=== PATIENT | male | born 1995 | race Hispanic/Latino ===

== ENCOUNTER 2016-03-14 14:22 | Inpatient (IN) | payer OTHER ==
[~2016-03-14] VITALS: Ht 165.1 cm; Wt 60.0 kg
[2016-03-14 14:55] LABS: MEAN CORPUSCULAR HEMOGLOBIN 32.1 pg (27.0-33.0); MEAN CORPUSCULAR HGB CONC 35.1 g/dl (32.0-36.5); MEAN CORPUSCULAR VOLUME 91.5 fl (80.0-96.0); RED CELL DISTRIBUTION WIDTH 11.3 % (11.5-14.5)
[2016-03-14 15:46] LABS: ALBUMIN 4.4 GM/DL (3.2-5.2); ALBUMIN/GLOBULIN RATIO 1.26 (1.00-1.93); ALKALINE PHOSPHATASE 58 U/L (45-117); ALT/SGPT 26 U/L (12-78); ANION GAP 7 MEQ/L (8-16); AST/SGOT 32 U/L (15-37); BILIRUBIN,DIRECT 0.2 MG/DL (0.0-0.2); BILIRUBIN,TOTAL 0.7 MG/DL (0.2-1.0); BLOOD UREA NITROGEN 10 MG/DL (7-18); CALCIUM LEVEL 8.6 MG/DL (8.5-10.1); CARBON DIOXIDE LEVEL 32 MEQ/L (21-32); CHLORIDE LEVEL 102 MEQ/L (98-107); CREATININE FOR GFR 1.46 MG/DL (0.70-1.30); GLOMERULAR FILTRATION RATE > 60.0 (>60); GLUCOSE, FASTING 79 MG/DL (70-105); POTASSIUM SERUM 3.3 MEQ/L (3.5-5.1); SODIUM LEVEL 141 MEQ/L (136-145); TOTAL PROTEIN 7.9 GM/DL (6.4-8.2)
[2016-03-14 17:12] LABS: AMPHETAMINES LEVEL URINE NEGATIVE (NEGATIVE)
[2016-03-14 17:13] LABS: BENZODIAZEPINES URINE NEGATIVE (NEGATIVE); COCAINE METABOLITE URINE NEGATIVE (NEGATIVE); CONTROL LINE INT CTR LINE PRESENT; METHADONE URINE NEGATIVE (NEGATIVE); OPIATES URINE NEGATIVE (NEGATIVE); TRICYCLIC ANTIDEPRESS URINE NEGATIVE (NEGATIVE)
--- NOTE | 2016-03-15 17:06 | EDDOCDS ---
Nurse's Notes [facility] Name: Monty Cardenas Age: 20 yrs Sex: Male : 1995 Arrival Date: 03/14/2016 Time: 14:22 Bed OBSERVATION Private MD: [facility] Diagnosis: Major depressive disorder, recurrent Presentation: 03/14 14:28 Presenting complaint: Patient states: Seen on [place] today concerned about alcohol mlb1 abuse sent here for eval denies SI/HI reports last drank on Saturday. Mental Health Triage Level: Level 2: The patient displays active suicidal ideations. substance abuse, SI per behavioral health clinic [place]. Adult Sepsis Screening: The patient does not have new or worsening altered mentation. Patient's respiratory rate is less than 22. Systolic blood pressure is greater than 100. Patient has a qSOFA score of 0- Negative Sepsis Screen. Mental Health Triage Level: Level 2:. Suicide/Homicide risk assessment- The patient reports that he/she has not been admitted to an inpatient mental health facility in the last 30 days. The patient reports that he/she has a recent or current history of substance abuse. The patient reports that he/she has no prior history of suicide attempt and/or organized plan. The patient reports that he/she has not experienced a significant life altering event in the last 30 days. 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 Transition of care: patient was not received from another setting of care. 14:28 Acuity: SANCHEZ Level 3 mlb1 14:28 Method Of Arrival: Walkin/Carried/Asstd mlb1 14:32 Red Flag criteria, patient assessed and is suitable to finish the RCE Process. mlb1 Triage Assessment: 14:31 General: Appears in no apparent distress, Behavior is appropriate for age, cooperative. mlb1 Pain: Denies pain. Pt Declines HIV testing. Historical: - Allergies: no known allergies; - Home Meds: 1. none - PMHx: none; - PSHx: none; - Social history: Smoking status: Patient uses tobacco products, light tobacco smoker. Patient uses alcohol on a daily basis. No barriers to communication noted, The patient speaks fluent Jordanian, Speaks appropriately for age. - Family history: Not pertinent. - : The pt / caregiver states he / she is not on anticoagulants. Home medication list is obtained from the patient. - Exposure Risk Screening:: None identified. Screenin:55 Screening information is obtained from the patient. Fall risk: No risks identified. mk4 Assistance ADL's: Requires assistance with. Abuse/DV Screen: The patient / caregiver reports he/she is: not in a situation that causes fear, pain or injury. Nutritional screening: No deficits noted. Advance Directives: Currently, there is no health care proxy. There is no active DNR order. There is no living will. There is no Power of Residential Appliance Repair Technician. Advance directive information has not previously been placed in an [facility] medical record. Further advance directive information is declined. home support is adequate. Assessment: 14:55 General: Appears in no apparent distress, comfortable, Behavior is cooperative, mk4 pleasant. Neurological: Level of Consciousness is awake, alert, Oriented to person, place, time. Respiratory: Airway is patent Respiratory effort is even, unlabored, Respiratory pattern is regular. Derm: Skin is intact, is healthy with good turgor, Skin is pink, warm & dry. 16:00 General: Appears in no apparent distress, to be sleeping. Behavior is cooperative, mk4 pleasant, quiet, in full view of security. 17:15 General: Appears in no apparent distress, dinner tray provided denies needs. mk4 18:20 General: Appears in no apparent distress, comfortable, Behavior is cooperative, quiet. mk4 Neurological: Level of Consciousness is awake, alert, Oriented to person, place, time. Respiratory: Airway is patent Respiratory effort is even, unlabored, Respiratory pattern is regular. 19:17 General: Appears in no apparent distress, comfortable, to be sleeping. General: pt slm resting on stretcher security observing . Respiratory: Airway is patent Respiratory effort is even, unlabored. 20:23 General: Appears in no apparent distress, comfortable, to be sleeping. Behavior is slm quiet. General: security observing . Respiratory: Airway is patent Respiratory effort is even, unlabored. 21:15 General: Appears in no apparent distress, comfortable, to be sleeping. Behavior is slm cooperative, quiet. General: security observing . Respiratory: Airway is patent Respiratory effort is even, unlabored. Derm: Skin is pink, warm & dry. 22:15 General: Appears in no apparent distress, comfortable, to be sleeping. Behavior is slm cooperative, quiet. General: security observing . Respiratory: Airway is patent Respiratory effort is even, unlabored. 23:03 General: Appears in no apparent distress, comfortable, to be sleeping. Behavior is slm quiet. General: pt asleep security observing safety maintained . Respiratory: Airway is patent Respiratory effort is even, unlabored. 03/15 00:27 General: Appears in no apparent distress, comfortable, to be sleeping. Behavior is slm quiet. General: security observing . Respiratory: Airway is patent Respiratory effort is even, unlabored. 01:41 General: Appears in no apparent distress, comfortable, to be sleeping. Behavior is slm quiet. General: security observing . Respiratory: Airway is patent Respiratory effort is even, unlabored. 02:18 General: Appears in no apparent distress, comfortable, to be sleeping. Behavior is slm quiet. General: security observing . Respiratory: Airway is patent Respiratory effort is even, unlabored. 02:55 General: Appears in no apparent distress, Pt asleep at rounds, no apparent distress, sls1 respirations easy, security observing will continue to assess.. Respiratory: Airway is patent Respiratory effort is even, unlabored, Respiratory pattern is regular, symmetrical. 03:48 General: Appears in no apparent distress, comfortable, to be sleeping. Behavior is slm quiet. General: security observing . Respiratory: Airway is patent Respiratory effort is even, unlabored. Derm: Skin is pink, warm & dry. 03:54 General: Appears comfortable. General: pt up to use bathroom back to room denies room slm safety maintained . Pain: Denies pain. Neurological: Level of Consciousness is awake, alert, obeys commands, Oriented to person, place, time. 05:05 General: Appears in no apparent distress, comfortable, Behavior is cooperative. slm General: pt resting on stretcher security observing . Respiratory: Airway is patent Respiratory pattern is regular. 06:17 General: Appears in no apparent distress, comfortable. General: pt resting on stretcher slm denies needs security observing . Pain: Denies pain. Respiratory: Airway is patent Respiratory effort is even, unlabored. Derm: Skin is pink, warm & dry. 07:11 General: Appears in no apparent distress, comfortable, Behavior is appropriate for age, slm cooperative, quiet. General: pt sitting on side of stretcher eating breakfast provided security observing . Respiratory: Airway is patent Respiratory effort is even, unlabored. 08:44 General: Appears in no apparent distress, comfortable, Behavior is cooperative. mk4 Neurological: Level of Consciousness is awake, alert. 10:19 General: Appears in no apparent distress, comfortable, Behavior is appropriate for age, mk4 cooperative. Neurological: Level of Consciousness is awake, alert, Oriented to person, place, time. 11:25 General: Appears in no apparent distress, Behavior is cooperative. mk4 15:19 General: Appears in no apparent distress, comfortable, Behavior is cooperative. mk4 Neurological: Level of Consciousness is awake, alert, Oriented to person, place, time. Respiratory: Airway is patent Respiratory effort is even, unlabored, Respiratory pattern is regular. 15:59 General: Appears in no apparent distress, comfortable, Behavior is cooperative. mk4 16:29 General: Appears in no apparent distress, comfortable. mk4 16:39 General: Appears in no apparent distress, transferred to [facility] without incident. mk4 Mental Health Eval: 03/14 15:44 Mental health consult is initiated at 15:44. 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 Referral Information: Evaluation referral is generated by the patient's therapist [facility], Pamela Wilson . The patient was referred for evaluation because Reportedly suicidal with no plan, hx of ETOH abuse. 16:52 Subjective: The patients chief complaint is Pt seen at [facility] today due to ca increased depression and suicidal thoughts. Pt feels he would be at risk if discharged today although he has no specific plan at this time. Pt states he is upset because his left him on [place] and went back to [place]. He says she has been unfaithful to him and later texted him a picture of a positive test. . Delusions are denied. Patient's mood is depressed, hopeless. 17:34 Subjective: Hallucinations are denied. 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 He and his have been having marital problems and she left him on [place] [address] then texted him she is . Pt became upset because his had been unfaithful to him. Pt says he started drinking alcohol daily for 2 weeks then stopped abruptly. He is not a regular consumer of alcohol. Pt began having suicidal thoughts shortly thereafter. He reports feeling increasingly depressed, unable to sleep or eat properly, frequent bouts of crying and says he still loves his and wants things to work out. Mental Health history: no relevant mental health problems or treatments. Mental Health Admissions: None. Current Outpatient Mental Health Services: Therapist / Agency: Pt was seen by Pamela Wilson at [facility] as an emergent evaluation today after pt was sent there following an appearance at the [facility] program where he was requesting tx for alcohol abuse.. Current living environment is Family / Home Support: Pt currently living alone, off the post. He has no local family supports. His is in [place] where they are from and they have . recently revealed she is . Pt is unsure if the child is his. Patient presents to Emergency Department with the following symptoms within the past 2 weeks: agitation, alcohol abuse, anxiety, depressed mood, feelings of helplessness/hopelessness, marital problem, sleep disturbance - erratic suicidal ideation with no plan. Substance abuse: Patient uses of liquor. Mental status exam: Patients appearance is appropriate, Patient's behavior is cooperative, Speech is normal. Affect is appropriate. Mood is depressed. Hallucinations are denied. Appetite is erratic Memory is good. Energy level is normal. Content of thought is Depressive Thought process is intact. Cognitive level is oriented to person, place, time and situation Patient's insight is fair. Judgement is fair. Rapport with interviewer is good. Suicidal Ideation is present with no specific plan. Homicidal ideation is denied. Disposition: Medically cleared for disposition by Binta Srinivasan MD Psychiatric Consult is performed by phone with Dr Marc Stokes The patient is to be transferred to [facility] at this time. [facility] Admission Criteria: The patient is experiencing suicidal ideation. The patient displays symptoms of severe psychiatric disorder resulting in disordered behavior and significant interference with his / her ability to maintain self care. Severe Anxiety. The patient requires continuous observation and/or control to protect self, others or property. The patient's care requires a multi-modal treatment plan under close supervision and coordination due to the complexity and severity of the patient's symptoms. Legal Status: Patient's legal status will be [facility] admission: . [place] Safe [place] Safe [place] is applicable to this patient. The patient poses a risk to self or other and the Nursing Hydroelectric Production Manager has been notified. He/She will enter the patient's data. DSM-V Differential Diagnosis: Unspecified Depressive Disorder (F32.9). Insurance Pre-Certification: Not Required, Pt has . Awaiting: referral hospital acceptance. 03/15 14:24 Legal Status: Patient's legal status will be Emergency admission: 9.39. Narrative: ca Escort: Kvng Davis [phone]. Awaiting: transfer to [facility]. Vital Signs: 03/14 14:23 BP 117 / 73; Pulse 81; Resp 18 S; Temp 97.3(O); Pulse Ox 98% on R/A; Weight 63.5 kg dd6 (R); Height 5 ft. 5 in. (165.10 cm) (R); 19:30 BP 110 / 62; Pulse 97; Resp 18; Temp 99.1(TE); Pulse Ox 97% ; Pain 0/10; mas 03/15 05:02 BP 121 / 72; Pulse 79; Resp 16; Temp 98.1(TE); Pulse Ox 98% on R/A; Pain 0/10; slm 15:19 BP 113 / 63; Pulse 87; Resp 18; Temp 98.7; Pulse Ox 99% on R/A; mk4 03/14 14:23 Body Mass Index 23.30 (63.50 kg, 165.10 cm) dd6 Vitals: 03/14 14:23 Log In Time: March 14, 2016 at 14:21. RN notified that patient meets Red Flag dd6 criteria. ED Course: 14:23 Patient visited by Rishi Rousseau PCA. dd6 14:23 [facility] is Private Physician. dd6 14:23 Patient moved to Waiting dd6 14:28 Patient visited by Shahram Segura, RN. mlb1 14:31 Triage Initiated mlb1 14:32 Patient visited by Shahram Segura, KAYLEY. mlb1 14:32 Binta Srinivasan MD is Attending Physician. sd1 14:32 Patient visited by Binta Srinivasan MD. sd1 14:32 Patient moved to [facility] mlb1 14:36 Patient visited by Davonte Oquendo. gr2 14:55 The patient / caregiver is instructed regarding the plan of care and ED course. mk4 14:55 No IV's were initiated during this patient's visit. No procedures done that require mk4 assistance. 14:57 Patient visited by Davonte Oquendo. gr2 15:14 Patient visited by Davonte Oquendo. gr2 15:30 Patient visited by Davonte Oquendo. gr2 15:45 Patient visited by Davonte Oquendo. gr2 16:08 Patient visited by Tera Narayan PCA. jrd 16:20 Patient visited by Tera Narayan PCA. jrd 16:31 Patient visited by Tera Narayan PCA. jrd 16:43 [facility] Payment Agreement was scanned into studdex and attached to record. dm19 16:44 Patient visited by Davonte Oquendo. gr2 17:09 Patient visited by Davonte Oquendo. gr2 17:26 Patient visited by Davonte Oquendo. gr2 17:52 Patient visited by Tera Narayan PCA. jrd 18:03 Patient visited by Tera Narayan PCA. jrd 18:17 Patient visited by Davonte Ouqendo. gr2 18:31 Patient visited by Davonte Oquendo. gr2 18:45 Patient visited by Jayden Carter. mas 19:00 Patient visited by Jayden Carter. mas 19:15 Patient visited by Jayden Carter. mas 19:17 Rachel Gilbert LPN is Primary Nurse. slm 19:18 Patient visited by Rachel Gilbert LPN. slm 19:26 Attending Physician role handed off by Binta Srinivasan MD cs11 19:26 Magdi Mckeon DO is Attending Physician. cs11 19:31 Patient visited by Jayden Carter. mas 19:45 Patient visited by Jayden Carter. mas 20:00 Patient visited by Jayden Carter. mas 20:15 Patient visited by Jayden Carter. mas 20:23 Patient visited by Rachel Gilbert LPN. slm 20:30 Patient visited by Jayden Carter. mas 20:45 Patient visited by Jayden Carter. mas 21:00 Patient visited by Jayden Carter. mas 21:15 Patient visited by Jayden Carter. mas 21:15 Patient visited by Rachel Gilbert LPN. slm 21:31 Patient visited by Jayden Carter. mas 21:49 Patient visited by Jayden Carter. mas 21:52 Patient moved to OBSERVATION cs11 22:00 Patient visited by Jayden Carter. mas 22:15 Patient visited by Jayden Carter. mas 22:30 Patient visited by Jayden Carter. mas 22:44 Patient visited by Rachel Gilbert LPN. slm 22:45 Patient visited by Jayden Carter. mas 23:01 Patient visited by Jayden Carter. mas 23:15 Patient visited by Jayden Carter. mas 23:30 Patient visited by Jayden Carter. mas 01 00:05 Patient visited by Jayden Carter. mas 00:26 Patient visited by Jayden Carter. mas 00:28 Patient visited by Rachel Gilbert LPN. slm 00:31 Patient visited by Jayden Carter. mas 00:45 Patient visited by Jayden Carter. mas 01:01 Patient visited by Jayden Carter. mas 01:16 Patient visited by Jayden Carter. mas 01:30 Patient visited by Jayden Carter. mas 01:41 Patient visited by Rachel Gilbert LPN. slm 01:45 Patient visited by Jayden Carter. mas 02:00 Patient visited by Jayden Carter. mas 02:15 Patient visited by Jayden Carter. mas 02:19 Patient visited by Rachel Gilbert LPN. slm 02:30 Patient visited by Jayden Carter. mas 02:45 Patient visited by Jayden Carter. mas 02:56 Patient visited by Danielle Garcia RN. sls1 03:00 Patient visited by Jayden Carter. mas 03:15 Patient visited by Jayden Carter. mas 03:55 Patient visited by Rachel Gilbert LPN. slm 04:04 Patient visited by Jayden Carter. mas 04:15 Patient visited by Rachel Gilbert LPN. slm 04:44 Patient visited by Jayden Carter. mas 05:00 Patient visited by Jayden Carter. mas 05:06 Patient visited by Rachel Gilbert LPN. slm 05:15 Patient visited by Jayden Carter. mas 05:39 Patient visited by Jayden Carter. mas 05:45 Patient visited by Jayden Carter. mas 06:00 Patient visited by Jayden Carter. mas 06:15 Patient visited by Jayden Carter. mas 06:18 Patient visited by Rachel Gilbert LPN. slm 06:30 Patient visited by Jayden Carter. mas 06:45 Patient visited by Jayden Carter. mas 07:05 Patient visited by Jayden Carter. mas 07:09 Primary Nurse role handed off by Rachel Gilbert LPN mcp 07:11 Rachel Gilbert LPN is Primary Nurse. slm 07:12 Patient visited by Rachel Gilbert LPN. slm 07:23 Patient visited by Beny Conley Security Aide. pjf 07:36 Patient visited by Beny Conley Security Aide. pjf 07:45 Patient visited by Beny Conley Security Aide. pjf 08:06 Patient visited by Beny Conley Security Aide. pjf 08:29 Patient visited by Beny Conley Security Aide. pjf 08:41 Patient visited by Beny Conley Security Aide. pjf 09:44 Patient visited by Beny Conley Security Aide. pjf 10:01 Patient visited by Beny Conley Security Aide. pjf 10:22 Patient visited by Beny Conley Security Aide. pjf 10:35 Patient visited by Beny Conley Security Aide. pjf 10:54 Patient visited by Beny Conley Security Aide. pjf 11:05 Patient visited by Beny Conley Security Aide. pjf 11:19 Patient visited by Beny Conley Security Aide. pjf 11:39 Patient visited by Ferendzo, Beny, Security Aide. pjf 11:41 Patient visited by Beny Conley Security Aide. pjf 11:48 Patient visited by Beny Conley Security Aide. pjf 12:07 Patient visited by Beny Conley Security Aide. pjf 12:18 Patient visited by Beny Conley Security Aide. pjf 12:34 Patient visited by Maximino Hale. rn1 12:45 Patient visited by Maximino Hale. rn1 12:59 Patient visited by Maximino Hale. rn1 13:36 Patient visited by Beny Conley Security Aide. pjf 13:50 Patient visited by Beny Conley Security Aide. pjf 14:19 Patient visited by Beny Conley Security Aide. pjf 14:37 Patient visited by Beny Conley Security Aide. pjf 14:45 Psych Safety Check: Location: Psych Room. Visual Assessment: Cooperative. pjf 15:12 [facility] Legal paperwork was scanned into studdex and attached to record. ml4 15:15 Marc Stokes is Hospitalizing Provider. mk4 15:30 Psych Safety Check: Location: Psych Room. Visual Assessment: Cooperative. pjf 15:41 Patient visited by Shala Gaytan RN. mk4 15:56 Patient visited by Beny Conley Security Aide. pjf 16:27 Patient visited by Beny Conley Security Aide. pjf Attachments: 03/15 15:12 [facility] Legal paperwork ml4 Order Results: Lab Order: Acetaminophen Level; SPEC'M 03/14/16 14:49 Test: ACETAMINOPHEN LEVEL; Value: < 2.0; Range: 10.0-30.0; Abnormal: Below low normal; Units: UG/ML; Status: F Lab Order: Basic Metabolic Profile; SPEC'M 03/14/16 14:49 Test: GLUCOSE, FASTING; Value: 79; Range: 70-105; Units: MG/DL; Status: F Test: BLOOD UREA NITROGEN; Value: 10; Range: 7-18; Units: MG/DL; Status: F Test: CREATININE FOR GFR; Value: 1.46; Range: 0.70-1.30; Abnormal: Above high normal; Units: MG/DL; Status: F Test: GLOMERULAR FILTRATION RATE; Value: > 60.0; Range: >60; Status: F Test: SODIUM LEVEL; Value: 141; Range: 136-145; Units: MEQ/L; Status: F Test: POTASSIUM SERUM; Value: 3.3; Range: 3.5-5.1; Abnormal: Below low normal; Units: MEQ/L; Status: F Test: CHLORIDE LEVEL; Value: 102; Range: 98-107; Units: MEQ/L; Status: F Test: CARBON DIOXIDE LEVEL; Value: 32; Range: 21-32; Units: MEQ/L; Status: F Test: ANION GAP; Value: 7; Range: 8-16; Abnormal: Below low normal; Units: MEQ/L; Status: F Test: CALCIUM LEVEL; Value: 8.6; Range: 8.5-10.1; Units: MG/DL; Status: F Test Note: ; Units are mL/min/1.73 m2 Chronic Kidney Disease Staging per NKF: Stage I & II GFR >=60 Normal to Mildly Decreased Stage III GFR 30-59 Moderately Decreased Stage IV GFR 15-29 Severely Decreased Stage V GFR <15 Very Little GFR Left ESRD GFR <15 on CHANGE CONTROL SPECIALIST Lab Order: Complete Blood Count; SPEC'M 03/14/16 14:50 Test: WHITE BLOOD COUNT; Value: 7.0; Range: 4.0-10.0; Units: K/mm3; Status: F Test: RED BLOOD COUNT; Value: 4.65; Range: 4.30-6.10; Units: M/mm3; Status: F Test: HEMOGLOBIN; Value: 14.9; Range: 14.0-18.0; Units: g/dl; Status: F Test: HEMATOCRIT; Value: 42.5; Range: 42.0-52.0; Units: %; Status: F Test: MEAN CORPUSCULAR VOLUME; Value: 91.5; Range: 80.0-96.0; Units: fl; Status: F Test: MEAN CORPUSCULAR HEMOGLOBIN; Value: 32.1; Range: 27.0-33.0; Units: pg; Status: F Test: MEAN CORPUSCULAR HGB CONC; Value: 35.1; Range: 32.0-36.5; Units: g/dl; Status: F Test: RED CELL DISTRIBUTION WIDTH; Value: 11.3; Range: 11.5-14.5; Abnormal: Below low normal; Units: %; Status: F Test: PLATELET COUNT, AUTOMATED; Value: 268; Range: 150-450; Units: k/mm3; Status: F Lab Order: Drug Eval Toxicology ED Only; SPEC'M 03/14/16 14:44 Test: AMPHETAMINES LEVEL URINE; Value: NEGATIVE; Range: NEGATIVE; Status: F Test: BARBITURATES URINE; Value: NEGATIVE; Range: NEGATIVE; Status: F Test: BENZODIAZEPINES URINE; Value: NEGATIVE; Range: NEGATIVE; Status: F Test: CANNABINOIDS URINE; Value: NEGATIVE; Range: NEGATIVE; Status: F Test: COCAINE METABOLITE URINE; Value: NEGATIVE; Range: NEGATIVE; Status: F Test: METHADONE URINE; Value: NEGATIVE; Range: NEGATIVE; Status: F Test: OPIATES URINE; Value: NEGATIVE; Range: NEGATIVE; Status: F Test: TRICYCLIC ANTIDEPRESS URINE; Value: NEGATIVE; Range: NEGATIVE; Status: F Test Note: ; ALL PRESUMPTIVE POSITIVE FINDINGS ARE UNCONFIRMED NORMAL VALUES THRESHOLD IN NG/ML AMPHETAMINES 1000 METHAMPHETAMINES 1000 BARBITURATES 300 BENZODIAZEPINES 300 CANNABINOIDS (THC) 50 COCAINE METABOLITE 300 METHADONE 300 OPIATES 300 PHENCYCLIDINE 25 TRICYCLIC ANTIDEPRESSANTS 1000 RESULTS ARE FOR MEDICAL PURPOSES ONLY. ALL URINE SPECIMENS WILL BE SAVED FOR 3 DAYS. IF CONFIRMATION OF A PRESUMPTIVE POSTIVE SCREEN RESULT IS DESIRED, CALL CHEMISTRY ([phone]) AND REQUEST URINE TO BE SENT TO REFERENCE LAB. FOR A LIST OF CLOSELY RELATED COMPOUNDS PLEASE CALL THE LAB. Lab Order: Ethyl Alcohol (ethanol); SPEC'M 03/14/16 14:49 Test: ETHYL ALCOHOL (ETHANOL); Value: < 0.003; Range: 0.000-0.010; Units: %; Status: F Lab Order: Liver Profile; SPEC'M 03/14/16 14:49 Test: AST/SGOT; Value: 32; Range: 15-37; Units: U/L; Status: F Test: ALT/SGPT; Value: 26; Range: 12-78; Units: U/L; Status: F Test: ALKALINE PHOSPHATASE; Value: 58; Range: 45-117; Units: U/L; Status: F Test: BILIRUBIN,TOTAL; Value: 0.7; Range: 0.2-1.0; Units: MG/DL; Status: F Test: BILIRUBIN,DIRECT; Value: 0.2; Range: 0.0-0.2; Units: MG/DL; Status: F Test: TOTAL PROTEIN; Value: 7.9; Range: 6.4-8.2; Units: GM/DL; Status: F Test: ALBUMIN; Value: 4.4; Range: 3.2-5.2; Units: GM/DL; Status: F Test: ALBUMIN/GLOBULIN RATIO; Value: 1.26; Range: 1.00-1.93; Status: F Lab Order: Salicylate Level; SPEC'M 03/14/16 14:49 Test: SALICYLATE LEVEL; Value: < 1.7; Range: 5.0-30.0; Abnormal: Below low normal; Units: MG/DL; Status: F Lab Order: Thyroid Stimulating Hormone; SPEC'M 03/14/16 14:49 Test: THYROID STIMULATING HORMONE; Value: 0.836; Range: 0.358-3.740; Units: uIU/ML; Status: F Outcome: 15:16 Decision to Hospitalize by Provider. mk4 15:20 Discharge Assessment: Patient awake, alert and oriented x 3. No cognitive and/or mk4 functional deficits noted. Patient verbalized understanding of disposition instructions. Patient awake and alert. Discharge Assessment: patient administered narcotics - no. The following High Risk Discharge criteria are identified: None. Condition: good Condition: stable. No special radiology studies were completed. Property left with pt per calderon ZALDIVAR. 17:05 Patient left the ED. mk4 Signatures: Binta Srinivasan MD MD sd1 Kayla Haque, RN RN Michelle Lemus, PSA PSA ca Yael, Beny, Security [facility] Shahram Segura RN RN mlb1 Savanah Johnson, PSA PSA ml4 Rishi Rousseau, DRY CLEANING ATTENDANT DRY CLEANING ATTENDANT dd6 Jayden Carter Shannon, RN RN sls1 Magdi Mckeon, DO cs11 Davonte Oquendo gr2 Rachel Gilbert LPN LPN slShala Schultz RN RN mk4 Tera Narayan, DRY CLEANING ATTENDANT DRY CLEANING ATTENDANT Maximino Michelle rn1 Kristyn Gibbons dm19 Corrections: (The following items were deleted from the chart) 03/14 14:35 14:28 Mental Health Triage Level: Level 2: substance abuse mlb1 mlb1 MTDD
--- NOTE | 2016-03-15 17:06 | EDDOCDS ---
Physician Documentation [facility] Name: Monty Cardenas Age: 20 yrs Sex: Male : 1995 Arrival Date: 03/14/2016 Time: 14:22 Bed OBSERVATION Private MD: THOMAS MALIK Disposition: 03/15/16 15:16 Hospitalization ordered by Marc Stokes for Inpatient Admission. Preliminary diagnosis is Major depressive disorder, recurrent. - Bed requested for M PSY. - Status is Inpatient Admission. mk4 - Condition is Stable. Historical: - Allergies: no known allergies; - Home Meds: 1. none - PMHx: none; - PSHx: none; - Social history: Smoking status: Patient uses tobacco products, light tobacco smoker. Patient uses alcohol on a daily basis. No barriers to communication noted, The patient speaks fluent Hungarian, Speaks appropriately for age. - Family history: Not pertinent. - : The pt / caregiver states he / she is not on anticoagulants. Home medication list is obtained from the patient. - Exposure Risk Screening:: None identified. Vital Signs: 03/14 14:23 BP 117 / 73; Pulse 81; Resp 18 S; Temp 97.3(O); Pulse Ox 98% on R/A; Weight 63.5 kg / dd6 139.99 lbs (R); Height 5 ft. 5 in. (165.10 cm) (R); 19:30 BP 110 / 62; Pulse 97; Resp 18; Temp 99.1(TE); Pulse Ox 97% ; Pain 0/10; mas 03/15 05:02 BP 121 / 72; Pulse 79; Resp 16; Temp 98.1(TE); Pulse Ox 98% on R/A; Pain 0/10; slm 15:19 BP 113 / 63; Pulse 87; Resp 18; Temp 98.7; Pulse Ox 99% on R/A; mk4 03/14 14:23 Body Mass Index 23.30 (63.50 kg, 165.10 cm) dd6 MDM: 03/14 14:35 Consult PFS/PSA/Cathodic Protection Technician ordered. sd1 14:35 Consult PFS/PSA/Cathodic Protection Technician: Patient's case requires discussion with on-call sd1 Psychiatrist ordered. 14:35 PSA/PFS to call Nursing [place], to enter patient data on [place] Safe [place] if patient sd1 involuntarily admitted or transferred for SI or HI ordered. 14:35 Confirm accurate psychiatric medication list and times of last dosage ordered. sd1 14:35 Detain Pt Until Medically/PFS Cleared ordered. sd1 14:36 Acetaminophen Level Ordered. EDMS 14:36 Basic Metabolic Profile Ordered. EDMS 14:36 Complete Blood Count Ordered. EDMS 14:36 Drug Eval Toxicology ED Only Ordered. EDMS 14:36 Ethyl Alcohol (ethanol) Ordered. EDMS 14:36 Liver Profile Ordered. EDMS 14:36 Salicylate Level Ordered. EDMS 14:36 Thyroid Stimulating Hormone Ordered. EDMS 14:55 Consult PFS/PSA/Cathodic Protection Technician complete. mk4 14:55 Consult PFS/PSA/Cathodic Protection Technician: Patient's case requires discussion with on-call [facility] Psychiatrist complete. 14:55 PSA/PFS to call Nursing [facility] [place], to enter patient data on [place] Safe [place] if patient mk4 involuntarily admitted or transferred for SI or HI complete. 16:31 REGULAR DIET PLASTIC BRIDGES+DIET ordered. EDMS 16:43 [facility] Payment Agreement was scanned into [employer] and attached to record. dm19 16:43 Financial registration complete. dm19 17:21 Acetaminophen Level Reviewed. sd1 17:21 Basic Metabolic Profile Reviewed. sd1 17:21 Complete Blood Count Reviewed. sd1 17:21 Salicylate Level Reviewed. sd1 17:21 Drug Eval Toxicology ED Only Reviewed. sd1 17:21 Ethyl Alcohol (ethanol) Reviewed. sd1 17:21 Liver Profile Reviewed. sd1 17:21 Thyroid Stimulating Hormone Reviewed. sd1 03/15 04:24 REGULAR DIET PLASTIC BRIDGES+DIET ordered. EDMS 11:08 REGULAR DIET PLASTIC BRIDGES+DIET ordered. EDMS 14:16 Admit to [facility]: ordered. EDMS 15:12 [facility] Legal paperwork was scanned into [employer] and attached to record. ml4 Signatures: Dispatcher [employer] EDMS Binta Srinivasan MD MD sd1 Shahram Segura RN RN mlb1 Savanah Johnson, PSA PSA ml4 Shala Gaytan RN RN mk4 Kristyn Gibbons dm19 The chart was reviewed and I authenticate all verbal orders and agree with the evaluation and treatment provided.Attachments: 03/14 16:43 [facility] Payment Agreement dm19 MTDD
[2016-03-15] MEDS ORDERED: MOM 30ML SUSPENSION UDC PO PRN (18:00)
[2016-03-15] MEDS ORDERED: traZODone 50 MG TAB PO PRN (18:00)
[2016-03-15] MEDS ORDERED: ACETAMINOPHEN TAB 650MG DOSE (2X325MG) PO PRN (18:00)
[2016-03-15] MEDS ORDERED: MAALOX 30 ML SUSP *UDC PO PRN (18:00)
[2016-03-16 06:00] VITALS: BP 112/60
[2016-03-16] MEDS: NICOTINE 7 MG/24 HR TRANSDERMAL TD SCH (09:55)
--- NOTE | 2016-03-16 09:56 | HPEPDOC ---
Medical History and Physical Date of Admission Mar 15, 2016 at 17:05 History and Physical PCP: [facility] ATTENDING: Dr. Celso Connor HPI: 20yoM admitted to [facility] for MDD, being medically examined today. No acute medical complaints today. Denies any fevers, chills, weakness, fatigue, LI, CP, SOB, cough, palpitations, abdominal pain, N/V/D or changes in bowel or bladder habits. 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 Illicit Drugs: Marijuana in teens IV Drug Use: Denies Tattoos done unprofessionally: 1 HIV/hepatitis screening 12/24 negative FAMHX: Mother: Alive, well Father: Alive, estranged Siblings: 2 brothers, 5 sisters Alive, well Children: None Unexpected deaths due to medical reasons: None. ROS: As noted in HPI, otherwise 11pt ROS of systems reviewed and unremarkable PE: GEN: 20 yo M, appears stated age. Well-nourished, well developed. No acute distress. Alert and oriented x 3. Pleasant, interactive. HEENT: Normocephalic, atraumatic. Pupils are equal, round, and reactive to light. Extraocular movements are intact. No nystagmus appreciated. Sclera are nonicteric. Conjunctiva without injection. Nose midline. Nasal turbinates without bogginess. EACs both patent BL. TMs both visualized and antunez with good cone of light, no bulging or erythema. No facial asymmetry. Moist mucous membranes. Dentition fair. Pharynx pink and moist, no cobblestoning. Neck supple , trachea midline. No lymphadenopathy or thyromegaly appreciated. CHEST: Regular rate and rhythm, +S1, +S2 LUNGS: Clear to auscultation bilaterally. No wheezes, rales, or rhonchi. Breathing appears symmetric and easy. Patient is speaking in full sentences. No accessory muscle use. ABD: Round, soft, non-tender, non-distended. +Bowel sounds throughout. No rebound or guarding. No costovertebral angle tenderness. EXT: Pulses 2+ bilaterally dorsalis pedis and radial. No lower extremity edema appreciated. SKIN: Lena, dry, warm. Capillary refill <2sec. No rashes. NEURO: Alert and oriented x 3. Cranial nerves III-XII are intact. No focal deficits appreciated. EKG: Pending. A&P: 20yoM admitted to [facility] for MDD 1. Psych. Plan per Psychiatry. Obtain baseline EKG to assure the safety of psychiatric medications as they can prolong the QT interval. 2. Nicotine dependence. Patch available. 3. Hypokalemia. Recheck BMP. 4. Follow up with PCP on discharge. [facility]. 5. Substance use. Per psychiatry. 6. Elevated SCr. Improved po intake. Recheck BMP. Vital Signs Vital Signs Label Value Date Time Patient Temperature 98.1 degrees F 03/16/16 0600 Temperature Source Tympanic 03/16/16 0600 Pulse 77 03/16/16 0600 Respiratory Rate 18 bpm 03/16/16 0600 Blood Pressure Assessment 112/60 (77) 03/16/16 0600 Laboratory Data Labs 24H Item Value Date Time Sodium Level 141 MEQ/L 03/14/16 1449 Potassium Level 3.3 MEQ/L L 03/14/16 1449 Chloride Level 102 MEQ/L 03/14/16 1449 Carbon Dioxide Level 32 MEQ/L 03/14/16 1449 Anion Gap 7 MEQ/L L 03/14/16 1449 Blood Urea Nitrogen 10 MG/DL 03/14/16 1449 Creatinine 1.46 MG/DL H 03/14/16 1449 Glomerular Filtration Rate > 60.0 03/14/16 1449 Fasting Glucose 79 MG/DL 03/14/16 1449 Calcium Level 8.6 MG/DL 03/14/16 1449 Total Bilirubin 0.7 MG/DL 03/14/16 1449 Direct Bilirubin 0.2 MG/DL 03/14/16 1449 Aspartate Amino Transf (AST/SGOT) 32 U/L 03/14/16 1449 Alanine Aminotransferase (ALT/SGPT) 26 U/L 03/14/16 1449 Alkaline Phosphatase 58 U/L 03/14/16 1449 Total Protein 7.9 GM/DL 03/14/16 1449 Albumin 4.4 GM/DL 03/14/16 1449 Albumin/Globulin Ratio 1.26 03/14/16 1449 Thyroid Stimulating Hormone (TSH) 0.836 uIU/ML 03/14/16 1449 White Blood Count 7.0 K/mm3 03/14/16 1450 Red Blood Count 4.65 M/mm3 03/14/16 1450 Hemoglobin 14.9 g/dl 03/14/16 1450 Hematocrit 42.5 % 03/14/16 1450 Mean Corpuscular Volume 91.5 fl 03/14/16 1450 Mean Corpuscular Hemoglobin 32.1 pg 03/14/16 1450 Mean Corpuscular Hemoglobin Concent 35.1 g/dl 03/14/16 1450 Red Cell Distribution Width 11.3 % L 03/14/16 1450 Platelet Count 268 k/mm3 03/14/16 1450 Salicylates Level < 1.7 MG/DL L 03/14/16 1449 Urine Opiates Screen NEGATIVE 03/14/16 1444 Urine Methadone Screen NEGATIVE 03/14/16 1444 Acetaminophen Level < 2.0 UG/ML L 03/14/16 1449 Urine Barbiturates, Qualitative NEGATIVE 03/14/16 1444 Urine Tricyclic Antidepressants NEGATIVE 03/14/16 1444 Urine Amphetamine Level NEGATIVE 03/14/16 1444 Urine Benzodiazepines Screen NEGATIVE 03/14/16 1444 Urine Cocaine Metabolite NEGATIVE 03/14/16 1444 Urine Cannabinoids NEGATIVE 03/14/16 1444 Ethyl Alcohol Level < 0.003 % 03/14/16 1449 Home Medications No Active Prescriptions or Reported Meds Allergies Coded Allergies: No Known Allergies (Unverified , 03/15/16) Roxana Whiteside Mar 16, 2016 09:56
[2016-03-16 10:35] LABS: ANION GAP 8 MEQ/L (8-16); BLOOD UREA NITROGEN 9 MG/DL (7-18); CALCIUM LEVEL 8.6 MG/DL (8.5-10.1); CARBON DIOXIDE LEVEL 31 MEQ/L (21-32); CHLORIDE LEVEL 104 MEQ/L (98-107); CREATININE FOR GFR 1.06 MG/DL (0.70-1.30); GLOMERULAR FILTRATION RATE > 60.0 (>60); GLUCOSE, FASTING 81 MG/DL (70-105); POTASSIUM SERUM 4.2 MEQ/L (3.5-5.1); SODIUM LEVEL 143 MEQ/L (136-145)
--- NOTE | 2016-03-16 16:25 | HPEPDOC ---
[facility] History & Physical History and Physical DATE OF ADMISSION: Mar 15, 2016 at 17:05 CHIEF COMPLAINT: "I knew I needed immediate help with my depression". HISTORY OF THE PRESENT ILLNESS: Patient states approximately February 29, 2016, he found out his was having an affair. Patient states his left their home on and return to [place]. On , patient also found out that his was a few weeks . Patient believes the child is his. Patient has been in a relationship with his for 6 years, for 3 years. Patient states after his left, he began drinking heavily. [place] Behavioral health gave the patient the option of being admitted here. Patient felt that because of his drinking, current situation and how he was feeling, this was his best option. Patient also feels that a contributing factor is not sleeping as well as he usually does. PAST PSYCHIATRIC HISTORY: Patient denies and states he has had no prior mental health services before this admission. MEDICAL HISTORY: Patient denies any health issues currently. HOME MEDICATIONS: Please see below. ALLERGIES: Please see below. Patient denies any medicinal or environmental allergies. FAMILY PSYCHIATRIC HISTORY: Patient states his mother was Waters acted for suicidal ideation in the past, is not on any current meds. Patient denies any other familial psychiatric or mental health history. SOCIAL HISTORY: Pt. is currently , has physically from the marital home after an affair. Pt. does not want to however, wants a divorce. SUBSTANCE ABUSE HISTORY: Pt. denies and drug use or abuse. Pt. does feel he has been drinking too much since he found out about his 's affair and subsequent separation. LEGAL HISTORY: Pt. denies. VITAL SIGNS: Blood pressure 112/60, pulse 77, respirations 18, temperature 98.1 LABORATORY DATA: Please see below.Significant for high creatinine, low potassium. MENTAL STATUS EXAMINATION: Patient is a 20 year old male, who is pleasant, cooperative, well kempt, of average build. Speech: Is of normal rate and volume, articulate, coherent and spontaneous. Thought processes: Clear, Goal directed. Thought content: Logical, rational. Abstract reasoning: Good. Computation: Adequate, is currently easily distracted. Associations: Intact. Abnormal or psychotic thoughts: Pt. denies hallucinations, delusions, paranoia, homicidal or suicidal ideation. Judgment: Good. Insight: Fair. Oriented to: Time, place, person and surroundings. Recent and Remote Memory: Immediate, short-term and long-term memory are intact. Attention Span and Concentration: Good at present. Patient states it had become increasingly worse when he was not sleeping. Language: Normal. Fund of knowledge: Good. Mood: Neutral. Affect: Appropriate, . ASSESSMENT: Pt. is currently trying to deal with situational life stressors. Pt. feel he is improving since he has been on the unit as he is talking openly about what is bothering him. Pt. states this is not how he usually does things. Pt. was also happy that his called him back and that he got to speak with her. PROBLEM LIST: 1. Substance abuse - Alcohol. 2. Cognitive impairment. 3. Ineffective coping. DIAGNOSES: 1. Situational adjustment disorder affecting mood. 2. Depression. 3. Alcohol use disorder. MANAGEMENT PLAN: Pt. to start using Trazodone 50 mg po q hs prn to improve sleep. Maintain safety precautions. Patient to attend groups and participate in unit programming to develop effective coping strategies. Patient to engage in discharge planning process to ensure safe and effective discharge plan. Patient to follow up with PCP upon discharge. Pt. to schedule outpatient therapy upon discharge. ESTIMATED LENGTH OF STAY: 3-5 days. Laboratory Data 24H Labs Laboratory Tests 2 03/16/16 10:02: Anion Gap 8, Blood Urea Nitrogen 9, Creatinine 1.06, Sodium Level 143, Potassium Level 4.2#, Chloride Level 104, Carbon Dioxide Level 31, Calcium Level 8.6, Glomerular Filtration Rate > 60.0 CBC/BMP Laboratory Tests 03/16/16 10:02 Calcium Level 8.6 Medications No Active Prescriptions or Reported Meds Allergies Coded Allergies: No Known Allergies (Unverified , 03/15/16) OLIVIER DOYLE NP Mar 16, 2016 16:25 JOSSELIN JOSHI MD Mar 18, 2016 11:15
[2016-03-16 18:21] VITALS: BP 115/70
[2016-03-17 06:45] VITALS: BP 112/61
[2016-03-17] MEDS: NICOTINE 7 MG/24 HR TRANSDERMAL TD SCH (08:00)
[2016-03-17] MEDS ORDERED: NICOTINE 7 MG/24 HR TRANSDERMAL TD SCH (09:00)
[2016-03-17] MEDS: NICOTINE 14 MG/24 HR TRANSDERMAL TD SCH (09:06)
--- NOTE | 2016-03-17 15:00 | ECGEPIP ---
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
--- NOTE | 2016-03-17 15:50 | IPN ---
DATE: 03/17/2016 SUBJECTIVE: This is the 3rd day of inpatient admission for this patient, a 20-year-old man who was admitted due to presenting with worsening depression and reported suicidal ideation. This is his first inpatient psychiatric hospitalization and he is not on any psychiatric medication. He reports that he was depressed at the time, but since being inpatient he has been feeling increasingly better and no longer having severe depressive symptomatology. He denies active suicidal thoughts, plans, or intents at this time. His admitting diagnosis was adjustment disorder. OBSERVATION: His vital signs are stable with blood pressure 112/61, pulse 65, respirations 16 , temperature 97.1. He is observed to be groomed and appropriately dressed. No articulation difficulties. His speech is fluent. Thought process is coherent and goal-directed. No evidence of delusions or hallucinations. He describes his mood as less depressed and indicated that he has been getting much from psychotherapeutic interventions. He denies active suicidal thoughts, plans, or intents, as well as homicidal ideation. ASSESSMENT: Adjustment disorder with depressed mood. He currently does not require pharmacological interventions and has been responding positively to psychotherapy. PLAN: Current intervention will be continued and, if stable, he will be reassessed and discharged with outpatient followup. YU
[2016-03-17 18:00] VITALS: BP 137/87
--- NOTE | 2016-03-17 18:06 | EDDOCDS ---
Nurse's Notes [facility] Name: Monty Cardenas Age: 20 yrs Sex: Male : 1995 Arrival Date: 03/14/2016 Time: 14:22 Bed OBSERVATION Private [facility]: [facility] Diagnosis: Major depressive disorder, recurrent Presentation: 03/14 14:28 Presenting complaint: Patient states: Seen on [place] today concerned about alcohol mlb1 abuse sent here for eval denies SI/HI reports last drank on Saturday. Mental Health Triage Level: Level 2: The patient displays active suicidal ideations. substance abuse, SI per behavioral health clinic [place]. Adult Sepsis Screening: The patient does not have new or worsening altered mentation. Patient's respiratory rate is less than 22. Systolic blood pressure is greater than 100. Patient has a qSOFA score of 0- Negative Sepsis Screen. Mental Health Triage Level: Level 2:. Suicide/Homicide risk assessment- The patient reports that he/she has not been admitted to an inpatient mental health facility in the last 30 days. The patient reports that he/she has a recent or current history of substance abuse. The patient reports that he/she has no prior history of suicide attempt and/or organized plan. The patient reports that he/she has not experienced a significant life altering event in the last 30 days. 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 Transition of care: patient was not received from another setting of care. 14:28 Acuity: SANCHEZ Level 3 mlb1 14:28 Method Of Arrival: Walkin/Carried/Asstd mlb1 14:32 Red Flag criteria, patient assessed and is suitable to finish the RCE Process. mlb1 Triage Assessment: 14:31 General: Appears in no apparent distress, Behavior is appropriate for age, cooperative. mlb1 Pain: Denies pain. Pt Declines HIV testing. Historical: - Allergies: no known allergies; - Home Meds: 1. none - PMHx: none; - PSHx: none; - Social history: Smoking status: Patient uses tobacco products, light tobacco smoker. Patient uses alcohol on a daily basis. No barriers to communication noted, The patient speaks fluent Marshallese, Speaks appropriately for age. - Family history: Not pertinent. - : The pt / caregiver states he / she is not on anticoagulants. Home medication list is obtained from the patient. - Exposure Risk Screening:: None identified. Screenin:55 Screening information is obtained from the patient. Fall risk: No risks identified. mk4 Assistance ADL's: Requires assistance with. Abuse/DV Screen: The patient / caregiver reports he/she is: not in a situation that causes fear, pain or injury. Nutritional screening: No deficits noted. Advance Directives: Currently, there is no health care proxy. There is no active DNR order. There is no living will. There is no Power of Body Make Up Artist. Advance directive information has not previously been placed in an [facility] medical record. Further advance directive information is declined. home support is adequate. Assessment: 14:55 General: Appears in no apparent distress, comfortable, Behavior is cooperative, mk4 pleasant. Neurological: Level of Consciousness is awake, alert, Oriented to person, place, time. Respiratory: Airway is patent Respiratory effort is even, unlabored, Respiratory pattern is regular. Derm: Skin is intact, is healthy with good turgor, Skin is pink, warm & dry. 16:00 General: Appears in no apparent distress, to be sleeping. Behavior is cooperative, mk4 pleasant, quiet, in full view of security. 17:15 General: Appears in no apparent distress, dinner tray provided denies needs. mk4 18:20 General: Appears in no apparent distress, comfortable, Behavior is cooperative, quiet. mk4 Neurological: Level of Consciousness is awake, alert, Oriented to person, place, time. Respiratory: Airway is patent Respiratory effort is even, unlabored, Respiratory pattern is regular. 19:17 General: Appears in no apparent distress, comfortable, to be sleeping. General: pt slm resting on stretcher security observing . Respiratory: Airway is patent Respiratory effort is even, unlabored. 20:23 General: Appears in no apparent distress, comfortable, to be sleeping. Behavior is slm quiet. General: security observing . Respiratory: Airway is patent Respiratory effort is even, unlabored. 21:15 General: Appears in no apparent distress, comfortable, to be sleeping. Behavior is slm cooperative, quiet. General: security observing . Respiratory: Airway is patent Respiratory effort is even, unlabored. Derm: Skin is pink, warm & dry. 22:15 General: Appears in no apparent distress, comfortable, to be sleeping. Behavior is slm cooperative, quiet. General: security observing . Respiratory: Airway is patent Respiratory effort is even, unlabored. 23:03 General: Appears in no apparent distress, comfortable, to be sleeping. Behavior is slm quiet. General: pt asleep security observing safety maintained . Respiratory: Airway is patent Respiratory effort is even, unlabored. 03/15 00:27 General: Appears in no apparent distress, comfortable, to be sleeping. Behavior is slm quiet. General: security observing . Respiratory: Airway is patent Respiratory effort is even, unlabored. 01:41 General: Appears in no apparent distress, comfortable, to be sleeping. Behavior is slm quiet. General: security observing . Respiratory: Airway is patent Respiratory effort is even, unlabored. 02:18 General: Appears in no apparent distress, comfortable, to be sleeping. Behavior is slm quiet. General: security observing . Respiratory: Airway is patent Respiratory effort is even, unlabored. 02:55 General: Appears in no apparent distress, Pt asleep at rounds, no apparent distress, sls1 respirations easy, security observing will continue to assess.. Respiratory: Airway is patent Respiratory effort is even, unlabored, Respiratory pattern is regular, symmetrical. 03:48 General: Appears in no apparent distress, comfortable, to be sleeping. Behavior is slm quiet. General: security observing . Respiratory: Airway is patent Respiratory effort is even, unlabored. Derm: Skin is pink, warm & dry. 03:54 General: Appears comfortable. General: pt up to use bathroom back to room denies room slm safety maintained . Pain: Denies pain. Neurological: Level of Consciousness is awake, alert, obeys commands, Oriented to person, place, time. 05:05 General: Appears in no apparent distress, comfortable, Behavior is cooperative. slm General: pt resting on stretcher security observing . Respiratory: Airway is patent Respiratory pattern is regular. 06:17 General: Appears in no apparent distress, comfortable. General: pt resting on stretcher slm denies needs security observing . Pain: Denies pain. Respiratory: Airway is patent Respiratory effort is even, unlabored. Derm: Skin is pink, warm & dry. 07:11 General: Appears in no apparent distress, comfortable, Behavior is appropriate for age, slm cooperative, quiet. General: pt sitting on side of stretcher eating breakfast provided security observing . Respiratory: Airway is patent Respiratory effort is even, unlabored. 08:44 General: Appears in no apparent distress, comfortable, Behavior is cooperative. mk4 Neurological: Level of Consciousness is awake, alert. 10:19 General: Appears in no apparent distress, comfortable, Behavior is appropriate for age, mk4 cooperative. Neurological: Level of Consciousness is awake, alert, Oriented to person, place, time. 11:25 General: Appears in no apparent distress, Behavior is cooperative. mk4 15:19 General: Appears in no apparent distress, comfortable, Behavior is cooperative. mk4 Neurological: Level of Consciousness is awake, alert, Oriented to person, place, time. Respiratory: Airway is patent Respiratory effort is even, unlabored, Respiratory pattern is regular. 15:59 General: Appears in no apparent distress, comfortable, Behavior is cooperative. mk4 16:29 General: Appears in no apparent distress, comfortable. mk4 16:39 General: Appears in no apparent distress, transferred to [facility] without incident. mk4 Mental Health Eval: 03/14 15:44 Mental health consult is initiated at 15:44. 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 Referral Information: Evaluation referral is generated by the patient's therapist [facility], Pamela Wilson . The patient was referred for evaluation because Reportedly suicidal with no plan, hx of ETOH abuse. 16:52 Subjective: The patients chief complaint is Pt seen at [facility] today due to ca increased depression and suicidal thoughts. Pt feels he would be at risk if discharged today although he has no specific plan at this time. Pt states he is upset because his left him on [address] and went back to [place]. He says she has been unfaithful to him and later texted him a picture of a positive test. . Delusions are denied. Patient's mood is depressed, hopeless. 17:34 Subjective: Hallucinations are denied. 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 He and his have been having marital problems and she left him on [address] then texted him she is . Pt became upset because his had been unfaithful to him. Pt says he started drinking alcohol daily for 2 weeks then stopped abruptly. He is not a regular consumer of alcohol. Pt began having suicidal thoughts shortly thereafter. He reports feeling increasingly depressed, unable to sleep or eat properly, frequent bouts of crying and says he still loves his and wants things to work out. Mental Health history: no relevant mental health problems or treatments. Mental Health Admissions: None. Current Outpatient Mental Health Services: Therapist / Agency: Pt was seen by Pamela Wilson at [facility] as an emergent evaluation today after pt was sent there following an appearance at the [facility] program where he was requesting tx for alcohol abuse.. Current living environment is Family / Home Support: Pt currently living alone, off the post. He has no local family supports. His is in [place] where they are from and they have . recently revealed she is . Pt is unsure if the child is his. Patient presents to Emergency Department with the following symptoms within the past 2 weeks: agitation, alcohol abuse, anxiety, depressed mood, feelings of helplessness/hopelessness, marital problem, sleep disturbance - erratic suicidal ideation with no plan. Substance abuse: Patient uses of liquor. Mental status exam: Patients appearance is appropriate, Patient's behavior is cooperative, Speech is normal. Affect is appropriate. Mood is depressed. Hallucinations are denied. Appetite is erratic Memory is good. Energy level is normal. Content of thought is Depressive Thought process is intact. Cognitive level is oriented to person, place, time and situation Patient's insight is fair. Judgement is fair. Rapport with interviewer is good. Suicidal Ideation is present with no specific plan. Homicidal ideation is denied. Disposition: Medically cleared for disposition by Binta Srinivasan MD Psychiatric Consult is performed by phone with Dr Marc Stokes The patient is to be transferred to [facility] at this time. [facility] Admission Criteria: The patient is experiencing suicidal ideation. The patient displays symptoms of severe psychiatric disorder resulting in disordered behavior and significant interference with his / her ability to maintain self care. Severe Anxiety. The patient requires continuous observation and/or control to protect self, others or property. The patient's care requires a multi-modal treatment plan under close supervision and coordination due to the complexity and severity of the patient's symptoms. Legal Status: Patient's legal status will be [facility] admission: . [place] Safe [place] is applicable to this patient. The patient poses a risk to self or other and the Nursing Metropolitan Editor has been notified. He/She will enter the patient's data. DSM-V Differential Diagnosis: Unspecified Depressive Disorder (F32.9). Insurance Pre-Certification: Not Required, Pt has . Awaiting: referral hospital acceptance. 03/15 14:24 Legal Status: Patient's legal status will be Emergency admission: 9.39. Narrative: ca Escort: Kvng Davis [phone]. Awaiting: transfer to [facility]. Vital Signs: 03/14 14:23 BP 117 / 73; Pulse 81; Resp 18 S; Temp 97.3(O); Pulse Ox 98% on R/A; Weight 63.5 kg dd6 (R); Height 5 ft. 5 in. (165.10 cm) (R); 19:30 BP 110 / 62; Pulse 97; Resp 18; Temp 99.1(TE); Pulse Ox 97% ; Pain 0/10; mas 03/15 05:02 BP 121 / 72; Pulse 79; Resp 16; Temp 98.1(TE); Pulse Ox 98% on R/A; Pain 0/10; slm 15:19 BP 113 / 63; Pulse 87; Resp 18; Temp 98.7; Pulse Ox 99% on R/A; mk4 03/14 14:23 Body Mass Index 23.30 (63.50 kg, 165.10 cm) dd6 Vitals: 03/14 14:23 Log In Time: March 14, 2016 at 14:21. RN notified that patient meets Red Flag dd6 criteria. ED Course: 14:23 Patient visited by Rishi Rousseau PCA. dd6 14:23 [facility] is Private Physician. dd6 14:23 Patient moved to Waiting dd6 14:28 Patient visited by Shahram Segura, RN. mlb1 14:31 Triage Initiated mlb1 14:32 Patient visited by Shahram Segura, KAYLEY. mlb1 14:32 Binta Srinivasan MD is Attending Physician. sd1 14:32 Patient visited by Binta Srinivasan MD. sd1 14:32 Patient moved to [facility] mlb1 14:36 Patient visited by Davonte Oquendo. gr2 14:55 The patient / caregiver is instructed regarding the plan of care and ED course. mk4 14:55 No IV's were initiated during this patient's visit. No procedures done that require mk4 assistance. 14:57 Patient visited by Davonte Oquendo. gr2 15:14 Patient visited by Davonte Oquendo. gr2 15:30 Patient visited by Davonte Oquendo. gr2 15:45 Patient visited by Davonte Oquendo. gr2 16:08 Patient visited by Tera Narayan PCA. jrd 16:20 Patient visited by Tera Narayan PCA. jrd 16:31 Patient visited by Tera Narayan PCA. jrd 16:43 [facility] Payment Agreement was scanned into [employer] and attached to record. dm19 16:44 Patient visited by Davonte Oquendo. gr2 17:09 Patient visited by Davonte Oquendo. gr2 17:26 Patient visited by Davonte Oquendo. gr2 17:52 Patient visited by Tera Narayan PCA. jrd 18:03 Patient visited by Tera Narayan PCA. jrd 18:17 Patient visited by Davonte Oquendo. gr2 18:31 Patient visited by Davonte Oquendo. gr2 18:45 Patient visited by Jayden Carter. mas 19:00 Patient visited by Jayden Carter. mas 19:15 Patient visited by Jayden Carter. mas 19:17 Rachel Gilbert LPN is Primary Nurse. slm 19:18 Patient visited by Rachel Gilbert LPN. slm 19:26 Attending Physician role handed off by Binta Srinivasan MD cs11 19:26 Magdi Mckeon DO is Attending Physician. cs11 19:31 Patient visited by Jayden Carter. mas 19:45 Patient visited by Jayden Carter. mas 20:00 Patient visited by Jayden Carter. mas 20:15 Patient visited by Jayden Carter. mas 20:23 Patient visited by Rachel Gilbert LPN. slm 20:30 Patient visited by Jayden Carter. mas 20:45 Patient visited by Jayden Carter. mas 21:00 Patient visited by Jayden Carter. mas 21:15 Patient visited by Jayden Carter. mas 21:15 Patient visited by Rachel Gilbert LPN. slm 21:31 Patient visited by Jayden Carter. mas 21:49 Patient visited by Jayden Carter. mas 21:52 Patient moved to OBSERVATION cs11 22:00 Patient visited by Jayden Carter. mas 22:15 Patient visited by Jayden Carter. mas 22:30 Patient visited by Jayden Carter. mas 22:44 Patient visited by Rachel Gilbert LPN. slm 22:45 Patient visited by Jayden Carter. mas 23:01 Patient visited by Jayden Carter. mas 23:15 Patient visited by Jayden Carter. mas 23:30 Patient visited by Jayden Carter. mas 01 00:05 Patient visited by Jayden Carter. mas 00:26 Patient visited by Jayden Carter. mas 00:28 Patient visited by Rachel Gilbert LPN. slm 00:31 Patient visited by Jayden Carter. mas 00:45 Patient visited by Jayden Carter. mas 01:01 Patient visited by Jayden Carter. mas 01:16 Patient visited by Jayden Carter. mas 01:30 Patient visited by Jayden Carter. mas 01:41 Patient visited by Rachel Gilbert LPN. slm 01:45 Patient visited by Jayden Carter. mas 02:00 Patient visited by Jayden Carter. mas 02:15 Patient visited by Jayden Carter. mas 02:19 Patient visited by Rachel Gilbert LPN. slm 02:30 Patient visited by Jayden Carter. mas 02:45 Patient visited by Jayden Carter. mas 02:56 Patient visited by Danielle Garcia RN. sls1 03:00 Patient visited by Jayden Carter. mas 03:15 Patient visited by Jayden Carter. mas 03:55 Patient visited by Rachel Gilbert LPN. slm 04:04 Patient visited by Jayden Carter. mas 04:15 Patient visited by Rachel Gilbert LPN. slm 04:44 Patient visited by Jayden Carter. mas 05:00 Patient visited by Jayden Carter. mas 05:06 Patient visited by Rachel Gilbert LPN. slm 05:15 Patient visited by Jayden Carter. mas 05:39 Patient visited by Jayden Carter. mas 05:45 Patient visited by Jayden Carter. mas 06:00 Patient visited by Jayden Carter. mas 06:15 Patient visited by Jayden Carter. mas 06:18 Patient visited by Rachel Gilbert LPN. slm 06:30 Patient visited by Jayden Carter. mas 06:45 Patient visited by Jayden Carter. mas 07:05 Patient visited by Jayden Carter. mas 07:09 Primary Nurse role handed off by Rachel Gilbert LPN mcp 07:11 Rachel Gilbert LPN is Primary Nurse. slm 07:12 Patient visited by Rachel Gilbert LPN. slm 07:23 Patient visited by Beny Conley Security Aide. pjf 07:36 Patient visited by Beny Conley Security Aide. pjf 07:45 Patient visited by Beny Conley Security Aide. pjf 08:06 Patient visited by Beny Conley Security Aide. pjf 08:29 Patient visited by Beny Conley Security Aide. pjf 08:41 Patient visited by Beny Conley Security Aide. pjf 09:44 Patient visited by Beny Conley Security Aide. pjf 10:01 Patient visited by Beny Conley Security Aide. pjf 10:22 Patient visited by Beny Conley Security Aide. pjf 10:35 Patient visited by Beny Conley Security Aide. pjf 10:54 Patient visited by Beny Conley Security Aide. pjf 11:05 Patient visited by Beny Conley Security Aide. pjf 11:19 Patient visited by Beny Conley Security Aide. pjf 11:39 Patient visited by Ferendzo, Beny, Security Aide. pjf 11:41 Patient visited by Beny Conley Security Aidkristy. pjf 11:48 Patient visited by Beny Conley Security Aide. pjf 12:07 Patient visited by Beny Conley Security Aide. pjf 12:18 Patient visited by Beny Conley Security Aidkristy. pjf 12:34 Patient visited by Maximino Hale. rn1 12:45 Patient visited by Maximino Hale. rn1 12:59 Patient visited by Maximino Hale. rn1 13:36 Patient visited by Beny Conley Security Aidkristy. pjf 13:50 Patient visited by Beny Conley Security Aide. pjf 14:19 Patient visited by Beny Conley Security Aide. pjf 14:37 Patient visited by Beny Conley Security Aide. pjf 14:45 Psych Safety Check: Location: Psych Room. Visual Assessment: Cooperative. pjf 15:12 [facility] Legal paperwork was scanned into [employer] and attached to record. ml4 15:15 Marc Stokes is Hospitalizing Provider. mk4 15:30 Psych Safety Check: Location: Psych Room. Visual Assessment: Cooperative. pjf 15:41 Patient visited by Shala Gaytan RN. mk4 15:56 Patient visited by Beny Conley Security Aide. pjf 16:27 Patient visited by Beny Conley Security Aide. pjf 03/16 08:41 T-Sheet-- Draft Copy was scanned into [employer] and attached to record. gb Attachments: 03/15 15:12 [facility] Legal paperwork ml4 Order Results: Lab Order: Acetaminophen Level; SPEC'M 03/14/16 14:49 Test: ACETAMINOPHEN LEVEL; Value: < 2.0; Range: 10.0-30.0; Abnormal: Below low normal; Units: UG/ML; Status: F Lab Order: Basic Metabolic Profile; SPEC'M 03/14/16 14:49 Test: GLUCOSE, FASTING; Value: 79; Range: 70-105; Units: MG/DL; Status: F Test: BLOOD UREA NITROGEN; Value: 10; Range: 7-18; Units: MG/DL; Status: F Test: CREATININE FOR GFR; Value: 1.46; Range: 0.70-1.30; Abnormal: Above high normal; Units: MG/DL; Status: F Test: GLOMERULAR FILTRATION RATE; Value: > 60.0; Range: >60; Status: F Test: SODIUM LEVEL; Value: 141; Range: 136-145; Units: MEQ/L; Status: F Test: POTASSIUM SERUM; Value: 3.3; Range: 3.5-5.1; Abnormal: Below low normal; Units: MEQ/L; Status: F Test: CHLORIDE LEVEL; Value: 102; Range: 98-107; Units: MEQ/L; Status: F Test: CARBON DIOXIDE LEVEL; Value: 32; Range: 21-32; Units: MEQ/L; Status: F Test: ANION GAP; Value: 7; Range: 8-16; Abnormal: Below low normal; Units: MEQ/L; Status: F Test: CALCIUM LEVEL; Value: 8.6; Range: 8.5-10.1; Units: MG/DL; Status: F Test Note: ; Units are mL/min/1.73 m2 Chronic Kidney Disease Staging per NKF: Stage I & II GFR >=60 Normal to Mildly Decreased Stage III GFR 30-59 Moderately Decreased Stage IV GFR 15-29 Severely Decreased Stage V GFR <15 Very Little GFR Left ESRD GFR <15 on REPRESENTATIVE GOVERNMENT RELATIONS Lab Order: Complete Blood Count; [facility]'M 03/14/16 14:50 Test: WHITE BLOOD COUNT; Value: 7.0; Range: 4.0-10.0; Units: K/mm3; Status: F Test: RED BLOOD COUNT; Value: 4.65; Range: 4.30-6.10; Units: M/mm3; Status: F Test: HEMOGLOBIN; Value: 14.9; Range: 14.0-18.0; Units: g/dl; Status: F Test: HEMATOCRIT; Value: 42.5; Range: 42.0-52.0; Units: %; Status: F Test: MEAN CORPUSCULAR VOLUME; Value: 91.5; Range: 80.0-96.0; Units: fl; Status: F Test: MEAN CORPUSCULAR HEMOGLOBIN; Value: 32.1; Range: 27.0-33.0; Units: pg; Status: F Test: MEAN CORPUSCULAR HGB CONC; Value: 35.1; Range: 32.0-36.5; Units: g/dl; Status: F Test: RED CELL DISTRIBUTION WIDTH; Value: 11.3; Range: 11.5-14.5; Abnormal: Below low normal; Units: %; Status: F Test: PLATELET COUNT, AUTOMATED; Value: 268; Range: 150-450; Units: k/mm3; Status: F Lab Order: Drug Eval Toxicology ED Only; SPEC'M 03/14/16 14:44 Test: AMPHETAMINES LEVEL URINE; Value: NEGATIVE; Range: NEGATIVE; Status: F Test: BARBITURATES URINE; Value: NEGATIVE; Range: NEGATIVE; Status: F Test: BENZODIAZEPINES URINE; Value: NEGATIVE; Range: NEGATIVE; Status: F Test: CANNABINOIDS URINE; Value: NEGATIVE; Range: NEGATIVE; Status: F Test: COCAINE METABOLITE URINE; Value: NEGATIVE; Range: NEGATIVE; Status: F Test: METHADONE URINE; Value: NEGATIVE; Range: NEGATIVE; Status: F Test: OPIATES URINE; Value: NEGATIVE; Range: NEGATIVE; Status: F Test: TRICYCLIC ANTIDEPRESS URINE; Value: NEGATIVE; Range: NEGATIVE; Status: F Test Note: ; ALL PRESUMPTIVE POSITIVE FINDINGS ARE UNCONFIRMED NORMAL VALUES THRESHOLD IN NG/ML AMPHETAMINES 1000 METHAMPHETAMINES 1000 BARBITURATES 300 BENZODIAZEPINES 300 CANNABINOIDS (THC) 50 COCAINE METABOLITE 300 METHADONE 300 OPIATES 300 PHENCYCLIDINE 25 TRICYCLIC ANTIDEPRESSANTS 1000 RESULTS ARE FOR MEDICAL PURPOSES ONLY. ALL URINE SPECIMENS WILL BE SAVED FOR 3 DAYS. IF CONFIRMATION OF A PRESUMPTIVE POSTIVE SCREEN RESULT IS DESIRED, CALL CHEMISTRY ([phone]) AND REQUEST URINE TO BE SENT TO REFERENCE LAB. FOR A LIST OF CLOSELY RELATED COMPOUNDS PLEASE CALL THE LAB. Lab Order: Ethyl Alcohol (ethanol); SPEC'M 03/14/16 14:49 Test: ETHYL ALCOHOL (ETHANOL); Value: < 0.003; Range: 0.000-0.010; Units: %; Status: F Lab Order: Liver Profile; SPEC'M 03/14/16 14:49 Test: AST/SGOT; Value: 32; Range: 15-37; Units: U/L; Status: F Test: ALT/SGPT; Value: 26; Range: 12-78; Units: U/L; Status: F Test: ALKALINE PHOSPHATASE; Value: 58; Range: 45-117; Units: U/L; Status: F Test: BILIRUBIN,TOTAL; Value: 0.7; Range: 0.2-1.0; Units: MG/DL; Status: F Test: BILIRUBIN,DIRECT; Value: 0.2; Range: 0.0-0.2; Units: MG/DL; Status: F Test: TOTAL PROTEIN; Value: 7.9; Range: 6.4-8.2; Units: GM/DL; Status: F Test: ALBUMIN; Value: 4.4; Range: 3.2-5.2; Units: GM/DL; Status: F Test: ALBUMIN/GLOBULIN RATIO; Value: 1.26; Range: 1.00-1.93; Status: F Lab Order: Salicylate Level; SPEC'M 03/14/16 14:49 Test: SALICYLATE LEVEL; Value: < 1.7; Range: 5.0-30.0; Abnormal: Below low normal; Units: MG/DL; Status: F Lab Order: Thyroid Stimulating Hormone; SPEC'M 03/14/16 14:49 Test: THYROID STIMULATING HORMONE; Value: 0.836; Range: 0.358-3.740; Units: uIU/ML; Status: F Outcome: 03/15 15:16 Decision to Hospitalize by Provider. mk4 15:20 Discharge Assessment: Patient awake, alert and oriented x 3. No cognitive and/or mk4 functional deficits noted. Patient verbalized understanding of disposition instructions. Patient awake and alert. Discharge Assessment: patient administered narcotics - no. The following High Risk Discharge criteria are identified: None. Condition: good Condition: stable. No special radiology studies were completed. Property left with pt per calderon ZALDIVAR. 17:05 Patient left the ED. mk4 Signatures: Binta Srinivasan MD MD sd1 Kayla Haque, RN RN Michelle Lemus, PSA PSA ca Yusef, Kyara, Reg Reg gb Yael, Beny, Security Aide ChristiepShahram Siegel RN RN mlb1 Elizabeth, Savanah, PSA PSA ml4 Rishi Rousseau, OFFICE ASSISTANCE OFFICE ASSISTANCE dd6 Jayden Carter Shannon RN RN sls1 Magdi Mckeon, DO cs11 Davonte Oquendo gr2 Gilbert,Rachel,DRAFTER [employer]LECT[employer] Shala Mack RN RN mk4 Tera Narayan, OFFICE ASSISTANCE OFFICE ASSISTANCE jrd Maximino Hale rn1 Kristyn Gibbons dm19 Corrections: (The following items were deleted from the chart) 03/14 14:35 14:28 Mental Health Triage Level: Level 2: substance abuse mlb1 mlb1 Chart Complete MTDD
--- NOTE | 2016-03-17 18:06 | EDDOCDS ---
Physician Documentation [facility] Name: Monty Cardenas Age: 20 yrs Sex: Male : 1995 Arrival Date: 03/14/2016 Time: 14:22 Bed OBSERVATION Private MD: THOMAS MALIK Disposition: 03/15/16 15:16 Hospitalization ordered by Marc Stokes for Inpatient Admission. Preliminary diagnosis is Major depressive disorder, recurrent. - Bed requested for M PSY. - Status is Inpatient Admission. mk4 - Condition is Stable. Historical: - Allergies: no known allergies; - Home Meds: 1. none - PMHx: none; - PSHx: none; - Social history: Smoking status: Patient uses tobacco products, light tobacco smoker. Patient uses alcohol on a daily basis. No barriers to communication noted, The patient speaks fluent Stateless, Speaks appropriately for age. - Family history: Not pertinent. - : The pt / caregiver states he / she is not on anticoagulants. Home medication list is obtained from the patient. - Exposure Risk Screening:: None identified. Vital Signs: 03/14 14:23 BP 117 / 73; Pulse 81; Resp 18 S; Temp 97.3(O); Pulse Ox 98% on R/A; Weight 63.5 kg / dd6 139.99 lbs (R); Height 5 ft. 5 in. (165.10 cm) (R); 19:30 BP 110 / 62; Pulse 97; Resp 18; Temp 99.1(TE); Pulse Ox 97% ; Pain 0/10; mas 03/15 05:02 BP 121 / 72; Pulse 79; Resp 16; Temp 98.1(TE); Pulse Ox 98% on R/A; Pain 0/10; slm 15:19 BP 113 / 63; Pulse 87; Resp 18; Temp 98.7; Pulse Ox 99% on R/A; mk4 03/14 14:23 Body Mass Index 23.30 (63.50 kg, 165.10 cm) dd6 MDM: 03/14 14:35 Consult PFS/PSA/Movie Editor ordered. sd1 14:35 Consult PFS/PSA/Movie Editor: Patient's case requires discussion with on-call sd1 Psychiatrist ordered. 14:35 PSA/PFS to call Nursing Stone Cutter, to enter patient data on [place] Safe [place] if patient sd1 involuntarily admitted or transferred for SI or HI ordered. 14:35 Confirm accurate psychiatric medication list and times of last dosage ordered. sd1 14:35 Detain Pt Until Medically/PFS Cleared ordered. sd1 14:36 Acetaminophen Level Ordered. EDMS 14:36 Basic Metabolic Profile Ordered. EDMS 14:36 Complete Blood Count Ordered. EDMS 14:36 Drug Eval Toxicology ED Only Ordered. EDMS 14:36 Ethyl Alcohol (ethanol) Ordered. EDMS 14:36 Liver Profile Ordered. EDMS 14:36 Salicylate Level Ordered. EDMS 14:36 Thyroid Stimulating Hormone Ordered. EDMS 14:55 Consult PFS/PSA/Movie Editor complete. mk4 14:55 Consult PFS/PSA/Movie Editor: Patient's case requires discussion with on-call 4 Psychiatrist complete. 14:55 PSA/PFS to call Nursing Stone Cutter, to enter patient data [place] if patient mk4 involuntarily admitted or transferred for SI or HI complete. 16:31 REGULAR DIET PLASTIC BRIDGES+DIET ordered. EDMS 16:43 [facility] Payment Agreement was scanned into [employer] and attached to record. dm19 16:43 Financial registration complete. dm19 17:21 Acetaminophen Level Reviewed. sd1 17:21 Basic Metabolic Profile Reviewed. sd1 17:21 Complete Blood Count Reviewed. sd1 17:21 Salicylate Level Reviewed. sd1 17:21 Drug Eval Toxicology ED Only Reviewed. sd1 17:21 Ethyl Alcohol (ethanol) Reviewed. sd1 17:21 Liver Profile Reviewed. sd1 17:21 Thyroid Stimulating Hormone Reviewed. sd1 03/15 04:24 REGULAR DIET PLASTIC BRIDGES+DIET ordered. EDMS 11:08 REGULAR DIET PLASTIC BRIDGES+DIET ordered. EDMS 14:16 Admit to [facility]: ordered. EDMS 15:12 [facility] Legal paperwork was scanned into [employer] and attached to record. ml4 03/16 08:41 T-Sheet-- Draft Copy was scanned into [employer] and attached to record. gb Signatures: Dispatcher [employer] Binta Mascorro MD MD sd1 Kyara Holbrook, Reg Reg gb Shahram Segura RN RN mlb1 Savanah Johnson, PSA PSA ml4 hSala Gaytan RN RN mkKristyn Hutson dm19 The chart was reviewed and I authenticate all verbal orders and agree with the evaluation and treatment provided.Attachments: 03/14 16:43 [facility] [place] [email or web address] 03/16 08:41 T-Sheet-- Draft Copy gb Chart Complete MTDD
--- NOTE | 2016-03-17 18:06 | EDDOCDS ---
Physician Documentation [facility] Name: Monty Cardenas Age: 20 yrs Sex: Male : 1995 Arrival Date: 03/14/2016 Time: 14:22 Bed OBSERVATION Private MD: THOMAS MALIK Disposition: 03/15/16 15:16 Hospitalization ordered by Marc Stokes for Inpatient Admission. Preliminary diagnosis is Major depressive disorder, recurrent. - Bed requested for M PSY. - Status is Inpatient Admission. mk4 - Condition is Stable. Historical: - Allergies: no known allergies; - Home Meds: 1. none - PMHx: none; - PSHx: none; - Social history: Smoking status: Patient uses tobacco products, light tobacco smoker. Patient uses alcohol on a daily basis. No barriers to communication noted, The patient speaks fluent Yemeni, Speaks appropriately for age. - Family history: Not pertinent. - : The pt / caregiver states he / she is not on anticoagulants. Home medication list is obtained from the patient. - Exposure Risk Screening:: None identified. Vital Signs: 03/14 14:23 BP 117 / 73; Pulse 81; Resp 18 S; Temp 97.3(O); Pulse Ox 98% on R/A; Weight 63.5 kg / dd6 139.99 lbs (R); Height 5 ft. 5 in. (165.10 cm) (R); 19:30 BP 110 / 62; Pulse 97; Resp 18; Temp 99.1(TE); Pulse Ox 97% ; Pain 0/10; mas 03/15 05:02 BP 121 / 72; Pulse 79; Resp 16; Temp 98.1(TE); Pulse Ox 98% on R/A; Pain 0/10; slm 15:19 BP 113 / 63; Pulse 87; Resp 18; Temp 98.7; Pulse Ox 99% on R/A; mk4 03/14 14:23 Body Mass Index 23.30 (63.50 kg, 165.10 cm) dd6 MDM: 03/14 14:35 Consult PFS/PSA/Banquet Manager ordered. sd1 14:35 Consult PFS/PSA/Banquet Manager: Patient's case requires discussion with on-call sd1 Psychiatrist ordered. 14:35 PSA/PFS to call Nursing State Game Protector, to [place] data [place] if patient sd1 involuntarily admitted or transferred for SI or HI ordered. 14:35 Confirm accurate psychiatric medication list and times of last dosage ordered. sd1 14:35 Detain Pt Until Medically/PFS Cleared ordered. sd1 14:36 Acetaminophen Level Ordered. EDMS 14:36 Basic Metabolic Profile Ordered. EDMS 14:36 Complete Blood Count Ordered. EDMS 14:36 Drug Eval Toxicology ED Only Ordered. EDMS 14:36 Ethyl Alcohol (ethanol) Ordered. EDMS 14:36 Liver Profile Ordered. EDMS 14:36 Salicylate Level Ordered. EDMS 14:36 Thyroid Stimulating Hormone Ordered. EDMS 14:55 Consult PFS/PSA/Banquet Manager complete. mk4 14:55 Consult PFS/PSA/Banquet Manager: Patient's case requires discussion with on-call 4 Psychiatrist complete. 14:55 PSA/PFS to call Nursing State Game Protector, to [place] if patient mk4 involuntarily admitted or transferred for SI or HI complete. 16:31 REGULAR DIET PLASTIC BRIDGES+DIET ordered. EDMS 16:43 [facility] Payment Agreement was scanned into [employer] and attached to record. dm19 16:43 Financial registration complete. dm19 17:21 Acetaminophen Level Reviewed. sd1 17:21 Basic Metabolic Profile Reviewed. sd1 17:21 Complete Blood Count Reviewed. sd1 17:21 Salicylate Level Reviewed. sd1 17:21 Drug Eval Toxicology ED Only Reviewed. sd1 17:21 Ethyl Alcohol (ethanol) Reviewed. sd1 17:21 Liver Profile Reviewed. sd1 17:21 Thyroid Stimulating Hormone Reviewed. sd1 03/15 04:24 REGULAR DIET PLASTIC BRIDGES+DIET ordered. EDMS 11:08 REGULAR DIET PLASTIC BRIDGES+DIET ordered. EDMS 14:16 Admit to [facility]: ordered. EDMS 15:12 [facility] Legal paperwork was scanned into [employer] and attached to record. ml4 03/16 08:41 T-Sheet-- Draft Copy was scanned into [employer] and attached to record. gb Signatures: Dispatcher [employer] Binta Mascorro MD MD sd1 Kyara Holbrook, Reg Reg gb Shahram Segura RN RN mlb1 Savanah Johnson, PSA PSA ml4 Shala Gaytan RN RN mkKristyn Hutson dm19 The chart was reviewed and I authenticate all verbal orders and agree with the evaluation and treatment provided.Attachments: 03/14 16:43 [facility] [email or web address] 03/16 08:41 T-Sheet-- Draft Copy gb Chart Complete MTDD
[2016-03-17] MEDS: traZODone 100 MG TAB PO PRN (23:55)
[2016-03-18 06:40] VITALS: BP 119/58
[2016-03-18] MEDS: NICOTINE 14 MG/24 HR TRANSDERMAL TD SCH (08:37)
[2016-03-18 18:34] VITALS: BP 118/60
--- NOTE | 2016-03-18 20:50 | IPN ---
DATE: 03/18/2016 SUBJECTIVE: The patient is seen and current treatment reviewed. He is in his 4th day of inpatient psychiatric hospital admission. He presents with no new problems today. He reports that he is doing well and would want to be discharged the next day. He says that he slept well during the night and is looking forward to a chain of command meeting with his superiors. OBSERVATIONS: His vital signs are relatively stable, blood pressure 119/58, pulse 85, respirations 16, temperature 98.5. The patient is calm, cooperative, appropriately groomed, adequately adjusted. He is observed participating actively in program activities, interacting normally with his peers. No evidence of his being in any form of distress. No psychotic features are evident. His mood has improved significantly and he denies suicidal or homicidal ideation or any ideas to engage in violence. ASSESSMENT: He has improved significantly and presently does not appear to be at risk of danger to self or to others. PLAN: The patient will be scheduled for discharge within the next 24 hours after his chain of command meeting as he has maintained stability and currently does not require further inpatient stay. YU
[2016-03-18] MEDS: traZODone 100 MG TAB PO PRN (22:18)
[2016-03-19 05:57] VITALS: BP 135/67
[2016-03-19] MEDS: NICOTINE 14 MG/24 HR TRANSDERMAL TD SCH (09:00)
[2016-03-19] MEDS ORDERED: NICO14PA TD (09:06)
--- NOTE | 2016-03-19 11:00 | IPNPDOC ---
Assessment/Plan Date Seen The patient was seen on 03/19/16. Problems Problems: (1) Abnormal EKG Status: Chronic Problem Text: * EKG noted: This rhythm/sinus arrhythmia, [address] elevation, probable early repolarization. Consider Brugada pattern, nondiagnostic. * Patient with no prior EKG tracings, even through the that her are available for review at this time. * Discussed with the patient, patient is asymptomatic. No chest pain, shortness of breath, palpitations, presyncope or syncopal episodes. * No prior history of substance use. * Reviewed tracing with Dr. Grace- cardiology. He does not recommend any further testing or investigations at this time. Outpatient follow-up with PCP recommended. Plan / VTE VTE Prophylaxis Ordered?: No (ambulatory) Subjective Review of Systems CC/HPI The patient is a 20-year-old male admitted with a reason for visit of Unspecified Depressive D/O. Events since last encounter Pt with no concerns. Objective Physical Examination General Exam: Positive: Alert Eye Exam: Positive: PERRLA Chest Exam: Positive: Clear to auscultation Heart Exam: Positive: Normal S1, Normal S2, Rate Normal, Regular Rhythm, Negative: Murmurs, Rubs Skin Exam: Positive: Nl turgor and temperature Vital Signs/I&O Vital Signs Date Time Temp Pulse Resp B/P Pulse Ox O2 Delivery O2 Flow Rate FiO2 03/19/16 05:57 96.4 66 18 135/67 03/18/16 10:20 Room Air Roxana Whiteside Mar 19, 2016 11:00
[2016-03-19] MEDS ORDERED: TRAZ50TA4 PO (13:20)
--- NOTE | 2016-03-19 14:40 | DS.PDOC ---
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 Patient states his left their home on and returned to [place]. On , patient also found out that his was a few weeks . Patient believes the child is his. Patient has been in a relationship with his for 6 years, for 3 years. Patient states after his left, he began drinking heavily. [place] From there [place] Behavioral health gave the patient the option of being admitted here. Patient felt that because of his drinking, current situation and how he was feeling, this was his best option. Patient also feels that a contributing factor is not sleeping as well as he usually does. PAST PSYCHIATRIC HISTORY: Patient denies and states he has had no prior mental health services before this admission. MEDICAL HISTORY: Patient denies any health issues currently. FAMILY PSYCHIATRIC HISTORY: Patient states his mother was Waters acted for suicidal ideation in the past, is not on any current meds. Patient denies any other familial psychiatric or mental health history. SOCIAL HISTORY: Pt. is currently , has physically from the marital home after an affair. Pt. does not want to however, wants a divorce. SUBSTANCE ABUSE HISTORY: Pt. denies and drug use or abuse. Pt. does feel he has been drinking too much since he found out about his 's affair and subsequent separation. LEGAL HISTORY: Pt. denies. TREATMENT AND PROGRESS ON THE UNIT: Pt. is currently trying to deal with situational life stressors. Pt. feel he is improving since he has been on the unit as he is talking openly about what is bothering him. Pt. states this is not how he usually does things. Pt. was also happy that his called him back and that he got to speak with her. Patient was able to adjust to the unit. Patient was attending all groups and unit programming. Patient was seen engaging with peers and staff. Patient states the unit, "hopes me a lot by talking, socializing "." I learned a lot ". Patient states he's in a good mood today and feels increasingly better each day. Since states he's been sleeping very well. Patient has been using trazodone 50-100 mg when necessary as needed for sleep. Patient feels he is ready to go home and get on with the next part of his life. Recent is confident that he has enough resources and contacts that will support him once he is discharged. MENTAL STATUS EXAMINATION ON DISCHARGE: Patient is a 20 year old male, who is pleasant, cooperative, well kempt, of average build. Speech: Is of normal rate and volume, articulate, coherent and spontaneous. Thought processes: Clear, Goal directed. Thought content: Logical, rational. Abstract reasoning: Good. Computation: Adequate - good. Associations: Intact. Abnormal or psychotic thoughts: Pt. denies hallucinations, delusions, paranoia, obsessions, homicidal or suicidal ideation. Judgment: Good. Insight: Good. Oriented to: Time, place, person and surroundings. Recent and Remote Memory: Immediate, short-term and long-term memory are intact. Attention Span and Concentration: Good at present. Patient states it had become increasingly worse when he was not sleeping. Language: Normal. Fund of knowledge: Good. Mood: Neutral. Happy to be discharged. Affect: Appropriate, rational, logical. CONDITION ON DISCHARGE: Stable, no homicidal or suicidal ideation. MEDICATIONS ON DISCHARGE: Please see below. Trazodone 50 mg po q hs prn as needed for sleep, may repeat x1, #7, 3 refills DIAGNOSES ON DISCHARGE:Adjustment reaction affecting mood FOLLOWUP PLAN: Pt. [place] Pt. to schedule and attend individual counseling/medication management appointments. Pt. to work on effective coping strategies with therapist. Pt. to follow up with PCP in 7 days. TIME SPENT: 25 minutes. Vital Signs Vital Sign - Last 24 Hours 03/18/16 03/19/16 18:34 05:57 Temp 98.0 96.4 Pulse 80 66 Resp 16 18 B/P 118/60 135/67 Medications Scheduled Nicotine (Nicotine Transdermal Syst) 14 Mg/24 Hr Dis 1 PATCH TD DAILY SMOKING CESSATION Scheduled PRN Trazodone HCl (Trazodone HCl) 50 Mg Tab 50 MG PO QHSP PRN PRN SLEEP May repeat x 1 as needed for sleep Allergies Coded Allergies: No Known Allergies (Unverified , 03/15/16) OLIVIER DOYLE NP Mar 19, 2016 14:40 18:34 05:57 Temp 98.0 96.4 Pulse 80 66 Resp 16 18 B/P 118/60 135/67 Medications Scheduled Nicotine (Nicotine Transdermal Syst) 14 Mg/24 Hr Dis 1 PATCH TD DAILY SMOKING CESSATION Scheduled PRN Trazodone HCl (Trazodone HCl) 50 Mg Tab 50 MG PO QHSP PRN PRN SLEEP May repeat x 1 as needed for sleep Allergies Coded Allergies: No Known Allergies (Unverified , 03/15/16) OLIVIER DOYLE NP Mar 19, 2016 14:40
== END 2016-03-19 13:30 | disposition home or self-care (01) | DRG 882 ==
LOC: M ED 14:22 → M PSY 03-15 17:05
PROVIDERS: ADMIT Psychiatry & Neurology Psychiatry; ATTEND Psychiatry & Neurology Psychiatry
DX: F43.20 Adjustment disorder, unspecified (principal); F17.200 Nicotine dependence, unspecified, uncomplicated; E87.6 Hypokalemia